=== PATIENT | male | born 1995 | race Caucasian/White ===

== ENCOUNTER 2020-01-05 17:07 | Emergency (ER) | payer BC ==
[~2020-01-05] VITALS: Ht 180.3 cm; Wt 78.0 kg
--- NOTE | 2020-01-05 17:21 | NUR ---
CAME IN FOR [facility] SINCE THURSDAY. REFERRED FOR +DVT, TO ER BED 9, HOOKED TO MONITOR, CHANGED TO HOSP GOWN, WARM BLANKET PROVIDED, PATIENT AAO x 4, BREATHING EVEN AND UNLABORED. MARY RUTHERFORD AT BEDSIDE
--- NOTE | 2020-01-05 17:23 | NUR ---
PATIENT WENT TO [facility] [place] AND HAD ULTRASOUND OF L ARM VENOUS DOPPLER, OCCLUSIVE THROMBUS NOTED AT SUBCLAVIAN AND AXILLARY VEIN. INSTRUCTED TO GO TO ED.
[2020-01-05] MEDS ORDERED: ENOXAPARIN SODIUM 30 MG/0.3 ML DISP.SYRIN IV ONE (18:00)
[2020-01-05 18:08] LABS: BASOPHILS # (AUTO) 0.1 /CMM (0.0-0.2); BASOPHILS % (AUTO) 0.4 % (0.0-2.0); EOSINOPHILS % (AUTO) 0.4 % (0.0-6.0); HEMATOCRIT 43 % (39-51); HEMOGLOBIN 14.2 g/dL (13.5-17.5); LYMPHOCYTES # (AUTO) 1.8 /CMM (0.8-4.8); LYMPHOCYTES % (AUTO) 13.1 % (20.0-44.0); MEAN CORPUSCULAR HGB CONC 33 g/dl (31.0-36.0); MEAN CORPUSCULAR VOLUME 95 fL (80-96); MONOCYTES # (AUTO) 1.2 /CMM (0.1-1.30); MONOCYTES % (AUTO) 8.8 % (2.0-12.0); NEUTROPHILS # (AUTO) 10.5 /CMM (1.8-8.9); NEUTROPHILS % (AUTO) 77.3 % (43.0-81.0); PLATELET COUNT (AUTO) 192 /CMM (150-450); RED BLOOD CELL COUNT(AUTO) 4.48 MIL/uL (4.5-6.0); WHITE BLOOD COUNT (AUTO) 13.6 K/uL (4.3-11.0)
[2020-01-05] MEDS ORDERED: ENOXAPARIN SODIUM 80 MG/0.8 ML DISP.SYRIN SQ ONE (18:14)
[2020-01-05] MEDS ORDERED: IOHEXOL-350 100 ML VIAL IV ONE (18:16)
[2020-01-05] MEDS ORDERED: CT SWABBABLE VALVE TRANS SET 1 EA INFUS.SET MC ONE (18:16)
[2020-01-05] MEDS ORDERED: IV NS 0.9% 250 ML IV ONE (18:16)
--- NOTE | 2020-01-05 18:22 | NUR ---
VERIFIED IVP ORDER FOR LOVENOX 80MG. PER MD ZAVALA AND MARY RUTHERFORD, "IT'S OK TO GIVE LOVENOX IVP FOR DVT".
[2020-01-05 18:25] LABS: CALCIUM, SERUM 9.6 mg/dL (8.5-10.1); POTASSIUM 3.8 mmol/L (3.5-5.1)
--- NOTE | 2020-01-05 18:26 | NUR ---
RAPID COVID SWAB DONE AND SENT TO LAB
[2020-01-05 18:30] LABS: ALBUMIN 4.3 g/dL (3.4-5.0); BILIRUBIN,DIRECT 0.1 mg/dL (0.0-0.2); BILIRUBIN,TOTAL 0.6 mg/dL (0.2-1.0); TOTAL PROTEIN, SERUM 8.5 g/dL (6.4-8.2)
--- NOTE | 2020-01-05 19:13 | NUR ---
CALLED [facility], PAGED RAMAKRISHNA
--- NOTE | 2020-01-05 20:02 | NUR ---
IV removed. Catheter intact and site benign. Pressure and 4x4 applied to site. No bleeding noted.
[2020-01-05 20:03] VITALS: BP 127/76
--- NOTE | 2020-01-05 20:03 | NUR ---
Patient discharged to home in stable condition. Written and verbal after care instructions given. Patient verbalizes understanding of instruction.
== END 2020-01-05 20:04 | disposition home or self-care (01) ==
LOC: ER 17:14
DX: I82.622 Acute embolism and thrombosis of deep veins of left upper extremity (principal); I80.8 Phlebitis and thrombophlebitis of other sites; Z82.3 Family history of stroke; R03.0 Elevated blood-pressure reading, without diagnosis of hypertension; Z20.828 Contact with and (suspected) exposure to other viral communicable diseases
CPT/HCPCS: 36415; 71275; 80048; 80076; 85025; 85730; 87081; 87426; 96374; 99285; C9803; J1650; J7050; Q9967